=== PATIENT | female | born 1970 | race Caucasian/White ===

== ENCOUNTER 2019-04-17 15:43 | Emergency (ER) | payer OTHER ==
[~2019-04-17] VITALS: Ht 172.7 cm; Wt 84.4 kg
[2019-04-17] MEDS ORDERED: TOPROL XL25 M1 (16:12)
== END 2019-04-17 19:23 | disposition home or self-care (01) ==
LOC: ER 15:43
DX: S93.492A Sprain of other ligament of left ankle, initial encounter (principal); S90.811A Abrasion, right foot, initial encounter; S80.211A Abrasion, right knee, initial encounter; W01.198A Fall on same level from slipping, tripping and stumbling with subsequent striking against other object, initial encounter; Y93.01 Activity, walking, marching and hiking; Y92.480 Sidewalk as the place of occurrence of the external cause; Y99.8 Other external cause status